=== PATIENT | male | born 1985 | race Caucasian/White ===

== ENCOUNTER → 2018-07-04 11:38 | Outpatient (CLI) | payer OTHER, SELFPAY ==
--- NOTE | 2018-07-04 | DI.US.S_ITS ---
PROCEDURE: US SOFT TISSUE HEAD AND NECK INDICATIONS: POST AURICULAR CYSTS TECHNIQUE: Real-time scanning was performed of the neck region of interest, with image documentation. COMPARISON: None. FINDINGS: Prominent lymph nodes are noted in the right scalp posterior to the right ear. Left osteotomy pathologic size criteria. No abscess identified. IMPRESSION: Prominent right posterior periauricular scalp lymph nodes which could be reactive or neoplastic. Lymph nodes could be biopsied under ultrasound guidance if clinically indicated. Dictated by: Erika Tee MD, PhD on 07/04/2018 at 13:24 Approved by: Erika Tee MD, PhD on 07/04/2018 at 13:25
== END ==
PROVIDERS: Visit Provider Physician Assistant Medical
DX: R59.0 Localized enlarged lymph nodes (principal); H61.191 Noninfective disorders of pinna, right ear
CPT/HCPCS: 76536